=== PATIENT | female | born 1985 | race Caucasian/White ===

== ENCOUNTER 2016-12-18 19:18 | Emergency (ER) | payer BC ==
[2016-12-18] MEDS ORDERED: Diphtheria,Pertussis(Acell),Tetanus Vaccine 0.5 ML SDV IM ONE (19:25)
[2016-12-18] MEDS ORDERED: Lidocaine 1% 30 ML SDV INJECT ONE (19:25)
[2016-12-18 19:26] VITALS: BP 124/85
--- NOTE | 2016-12-18 19:29 | EDM.PDOC ---
ED HPI GENERAL MEDICAL PROBLEM - General Chief Complaint: Laceration Stated Complaint: FINGER LACERATION, [id number] Time Seen by Provider: 12/18/16 19:26 Source of Information: Reports: Patient History Limitations: Reports: No Limitations - History of Present Illness INITIAL COMMENTS - FREE TEXT/NARRATIVE: cut index [employer]. Right 4-Ring finger Pain Score (Numeric/FACES): 7 - Related Data Allergies Allergy/AdvReac Type Severity Reaction Status Date / Time No Known Allergies Allergy Verified 12/18/16 19:27 Home Meds: Home Meds Fluticasone Propionate [Flonase] 2 inh INH DAILY 07/06/13 [History] Omeprazole 40 mg PO DAILY 07/06/13 [History] Rizatriptan [Maxalt] 10 mg PO ASDIRECTED PRN 07/06/13 [History] Past Medical History Neurological History: Reports: Migraines - Infectious Disease History Infectious Disease History: Reports: Chicken Pox Social & Family History - Tobacco Use Smoking Status *Q: Never Smoker Second Hand Smoke Exposure: No - Alcohol Use Days Per Week of Alcohol Use: 1 Number of Drinks Per Day: 1 Total Drinks Per Week: 1 - Recreational Drug Use Recreational Drug Use: No Drug Use in Last 12 Months: No ED ROS GENERAL - Review of Systems Review Of Systems: ROS reveals no pertinent complaints other than HPI. ED EXAM, SKIN/RASH Exam: See Below Exam Limited By: No Limitations General Appearance: Alert, WD/WN, Mild Distress, Other (cut) Ears: Hearing Grossly Normal Throat/Mouth: Normal Voice, No Airway Compromise Head: Atraumatic Neck: Non-Tender, Full Range of Motion Respiratory/Chest: No Respiratory Distress Cardiovascular: Regular Rate, Rhythm GI/Abdominal: Soft, Non-Tender Extremities: Other (right index 3/4", NV wnl. tender R/P) Neurological: Alert, Oriented, Normal Cognition, Normal Gait, No Motor/Sensory Deficits Psychiatric: Tearful Skin: Warm, Dry, Normal Color Location, Skin: Upper Extremity, Right Lymphatic: No Adenopathy ED SKIN PROCEDURES - Laceration/Wound Repair Right Finger Lac/Wound length In cm: 2 (right index) Appearance: Subcutaneous, Linear, Clean Distal NVT: Neuro & Vascular Intact, No Tendon Injury Anesthetic Type: Local Local Anesthesia - Lidocaine (Xylocaine): 1% Plain Local Anesthetic Volume: 5cc Skin Prep: Chlorhexidine (Hibiciens) Exploration/Debridement/Repair: Wound Explored, No Foreign Material Found Closed with: Sutures Suture Size: 4-0 Suture Type: Nylon, Interrupted Sterile Dressing Applied: Nurse Tetanus Status Addressed: Yes Complications: No Course - Vital Signs Last Recorded V/S: Last Vital Signs Temp 36.4 C 12/18/16 19:25 Pulse 90 12/18/16 19:25 Resp 22 H 12/18/16 19:25 BP 124/85 12/18/16 19:25 Pulse Ox 100 12/18/16 19:25 - Orders/Labs/Meds Orders: Active Orders 24 hr Category Date Time Status Vaccines to be Administered [RC] PER UNIT ROUTINE Care 12/18/16 19:26 Active Acetaminophen/HYDROcodone [[place] 325-10 MG] Med 12/18/16 19:53 Once 1 tab PO ONETIME ONE Meds: Medications Discontinued Medications Generic Name Dose Route Start Last Admin Trade Name Freq PRN Reason Stop Dose Admin Diphtheria/Tetanus/Acell Pertussis 0.5 ml 12/18/16 19:25 Adacel IM 12/18/16 19:26 .ONCE ONE Diphtheria/Tetanus/Acell Pertussis Confirm 12/18/16 19:46 Adacel Administered 12/18/16 19:47 Dose 0.5 ml .ROUTE .STK-MED ONE Lidocaine HCl 30 ml 12/18/16 19:25 Xylocaine-Mpf 1% INJECT 12/18/16 19:26 ONETIME ONE Departure - Departure Time of Disposition: 19:54 Disposition: Home, Self-Care 01 Condition: Good Clinical Impression: Finger laceration Qualifiers: Encounter type: initial encounter Finger: index finger Damage to nail status: without damage Foreign body presence: without foreign body Laterality: right Qualified Code(s): S61.210A - Laceration without foreign body of right index finger without damage to nail, initial encounter - Discharge Information Instructions: Laceration Care, Adult, [id number] Referrals: Kristan Sorensen [Primary Care Provider] - Forms: ED Department Discharge Additional Instructions: 1) keep wound clean dry covered 2) suture removal 10 days 3) recheck if looks infected - My Orders Last 24 Hours: My Active Orders 12/18/16 19:26 Vaccines to be Administered [RC] PER UNIT ROUTINE 12/18/16 19:53 Acetaminophen/HYDROcodone [[place] 325-10 MG] 1 tab PO ONETIME ONE - Assessment/Plan Last 24 Hours: My Active Orders 12/18/16 19:26 Vaccines to be Administered [RC] PER UNIT ROUTINE 12/18/16 19:53 Acetaminophen/HYDROcodone [[place] 325-10 MG] 1 tab PO ONETIME ONE
[2016-12-18] MEDS ORDERED: Diphtheria,Pertussis(Acell),Tetanus Vaccine 0.5 ML SDV ONE (19:46)
[2016-12-18] MEDS ORDERED: Acetaminophen/HYDROcodone 325-10 MG Tab PO ONE (19:53)
== END 2016-12-18 20:05 | disposition home or self-care (01) ==
LOC: DL.ED 19:18
DX: S61.210A Laceration without foreign body of right index finger without damage to nail, initial encounter (principal); Z23 Encounter for immunization; W45.8XXA Other foreign body or object entering through skin, initial encounter; Z79.899 Other long term (current) drug therapy
CPT/HCPCS: 12001; 90471; 90715; 99282; A9270